=== PATIENT | male | born 1990 | race Caucasian/White ===

== ENCOUNTER → 2019-03-11 | Outpatient (CLI) | payer OTHER ==
--- NOTE | 2019-03-11 11:16 | RAD ---
EXAM DESCRIPTION: Chest,2 Views CLINICAL HISTORY: DYSPNEA COMPARISON: None TECHNIQUE: PA/lateral FINDINGS: There is no acute appearing cardiac or pulmonary abnormality. Heart size is normal with normal pulmonary vascularity. No pleural effusion or pneumothorax. Lungs are clear with no consolidating infiltrate. Lateral view shows intact sternum and T-spine. Lungs appear hyperexpanded on lateral view with flattened diaphragms and increased anterior clear space IMPRESSION: No consolidating infiltrate. Electronically signed by: Philip Steele MD 03/11/2019 11:14 AM CDT
== END ==
LOC: LAB.O 10:29
PROVIDERS: ATTEND Nurse Practitioner Family
DX: R06.00 Dyspnea, unspecified (principal)

== ENCOUNTER → 2020-01-06 | Outpatient (CLI) | payer OTHER | LOC: YCFC.O 12:05 | PROVIDERS: ATTEND Family Medicine | DX: Z03.818 Encounter for observation for suspected exposure to other biological agents ruled out (principal); Z20.828 Contact with and (suspected) exposure to other viral communicable diseases ==

== ENCOUNTER → 2020-03-23 | Outpatient (CLI) | payer SELFPAY | LOC: YCFC.O 09:49 | PROVIDERS: ATTEND Family Medicine | DX: Z20.828 Contact with and (suspected) exposure to other viral communicable diseases (principal) ==

== ENCOUNTER → 2020-06-06 | Outpatient (CLI) | payer OTHER | LOC: YCFC.O 12:15 | PROVIDERS: ATTEND Nurse Practitioner Family | DX: Z20.828 Contact with and (suspected) exposure to other viral communicable diseases (principal) ==